=== PATIENT | male | born 1975 | race Caucasian/White ===

== ENCOUNTER 2016-06-15 05:43 | Day surgery (SDC) | payer OTHER ==
--- NOTE | 2016-06-12 11:02 | HP ---
DATE OF CLINIC: 05/20/2016 HAY KWOK : 1975 PLANNED PROCEDURE: Right Knee Arthroscopic Lateral Meniscectomy, Possible Medial Meniscectomy, Possible Chondroplasty Lateral Femoral Condyle DATE OF PROCEDURE: June 15, 2016 SURGEON: Cabrera Serra M.D. PCP: Dr. Deon Dan HISTORY OF PRESENT ILLNESS Hay Kwok is a 41 year old male. * Medication list reviewed with patient allergy list reviewed with patient. Mr. Kwok is in today pre-operatively for his upcoming right knee arthroscopy with Dr. Serra on 06/15/16. Patient presents in good spirits and is eager to proceed. He states he uses his inhaler daily during the Winter months as early am cold air causes chest tightness. Otherwise no recent illness or change in health. No prior surgical complications. His recent consult with Dr. Serra follows: 40-year-old male here for consultation with respect to his right knee. He recently saw Remi on 11/15/15 for evaluation of bilateral knee pain. These have previously been managed by Dr. Gordon in [place]. The right side he had arthroscopy with addressing both the medial and lateral meniscal tears. He did well after that and was able to return to some intermittent running. In 2012 he was moving a piano, injured his left knee, had an arthroscopy of that as well with PMM and PLM and noted to have some lateral compartment osteoarthritis. Again, he had improvement after surgery, but has become more limited with overall activities. 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 He spends quite a bit of time on uneven ground. He has had increasing feelings of a catching sensation with weight-bearing and associated lateral pain. After seeing Remi he had an MRI scan done through [facility] that is available for my review. It is consistent with a tear of the body and anterior horn of the lateral meniscus as well as a possible tear of the posterior horn of the medial meniscus. There is an area of focal chondromalacia in the lateral femoral condyle that appears to be full thickness measured 5x7mm. Patient is interested in discussing definitive treatment options. He does use chewing tobacco. No significant other comorbidities. CURRENT MEDICATION * Advair HFA 45-21 MCG/ACT Aerosol as directed 30 days, 0 refills * Flonase Allergy Relief 50 MCG/ACT Suspension as needed 0 days, 0 refills PAST MEDICAL/SURGICAL HISTORY Reported: Medical: Reported numbness and Reported tingling. Surgical / Procedural: Prior surgery nasal surgery 2003 & 2005 and Arthroscopy Right knee scope 2009?, Left knee scope 2012?. SOCIAL HISTORY Behavioral: Caffeine use, chewing tobacco 1 can every 2 weeks, and non-smoker never smoked. Smoking status: Never smoker. Alcohol: Alcohol on occasion and alcohol use. Drug Use: Not using drugs. Work: Occupation [employer]. ALLERGIES * No Known Allergies REVIEW OF SYSTEMS Systemic: No fever and no recent weight change. Head: No head symptoms. Cardiovascular: No cardiovascular symptoms. Pulmonary: No pulmonary symptoms. Gastrointestinal: No gastrointestinal symptoms. Psychological: No psychological symptoms. Skin: No skin lesions and no rash. PHYSICAL FINDINGS * Vitals taken 05/20/2016 01:33 pm BP-Sitting R 146/74 mmHg 100 - 120/60 - 80 BP Cuff Size Regular Pulse Rate-Sitting 80 bpm 50 - 100 Temp-Oral 97.2 F 96 - 101 Height 70 in 64 - 74 Weight 212 lbs 125 - 225 Body Mass Index 30.4 kg/m2 Body Surface Area 2.14 m2 Pain Level 2 Ears, Nose, Throat: * ENT: normal. Lungs: * Clear to auscultation. Cardiovascular: Heart Rate and Rhythm: * Normal. Abdomen: * Normal. Neurological: Motor: * Dominant Hand = Right Hand. Patient is a well-developed, well-nourished male in no acute distress, normal-appearing mood and affect. He has an antalgic, stiff-legged gait favoring the right. He has overall normal alignment symmetric bilaterally. Exam of the right knee shows skin integrity to be well preserved, no wounds, rashes or lesions. He has trace effusion. No focal swelling. He is tender over the lateral joint-line reproducibly, mildly tender medially. Motion passively is 0-110 degrees, actively 0-125 degrees with significant discomfort on maximum flexion. He has pain with Jacquelyn's localized medially. He has a positive squat and positive Thessaly's for pain. Ligamentous exam is intact for cruciates and collaterals. Patella tracks well. NT over the medial retinaculum. NT over the anteromedial proximal tibia. Calf is soft and NT. Distal light touch sensation and motor function are intact and symmetric. Pulses are palpable. Gentle rotation of the hip is non-irritable, although he does have limited IR without pain. He does have tight hamstrings. Evaluation of the left knee shows neutral alignment. Skin is intact, no wounds, rashes or lesions. No swelling or effusion. He is tender over the lateral joint-line reproducibly, NT medially. Motion 0-130 degrees. Normal ligamentous exam. NT in the proximal tibia. Calf is soft and NT. Distal light touch sensation and motor function are intact and symmetric. Pulses are palpable. Gentle rotation of the hip is non-irritable, although is somewhat limited similar to the contralateral side. TESTS Prior x-rays were reviewed and are negative for acute bony abnormality. He does have what appears to be some slight medial compartment narrowing bilaterally without significant secondary degenerative changes. MRI scan is reviewed with findings as discussed above. ASSESSMENT * Acute complex tear of lateral meniscus Chronic bilateral knee pain. Right knee lateral meniscal tear, rule out medial meniscal tear. THERAPY * Patient not eligible for fall risk assessment. PLAN * Arthroscopy of the knee with lateral meniscectomy -Right, possible medial meniscectomy, possible chondroplasty lateral femoral condyle Discussed with patient in detail the limitations, expectations as well as risks and possible complications of surgery including, but not limited to wound problems or infection, neurovascular injury, continued knee pain or dysfunction including the possibility of failure over time that may require additional operative or non-operative treatment. Patient also realizes the perioperative risks including risks associated with anesthesia and would like to proceed. A full PAR conference was held, questions and concerns addressed and informed consent was obtained. Patient will be sent from my office for completion of the preoperative workup. CARE TEAM Deon Dan MD [facility] CC: Deon Dan MD RS/sg
[2016-06-15] MEDS ORDERED: LACTATED RINGERS 1,000 ML ONE (05:52)
[2016-06-15] MEDS ORDERED: IV START KIT ONE (05:52)
[2016-06-15] MEDS ORDERED: CEFAZOLIN SODIUM 2 GRAM PREMIX 100 ML IV PRN (06:00)
[2016-06-15] MEDS ORDERED: CEFAZOLIN SODIUM 2 GRAM PREMIX 100 ML IV ONE (06:40)
[2016-06-15] MEDS ORDERED: BUPIVACAINE 0.5% (PRES FREE) 30 ML VIAL ONE (06:58)
[2016-06-15] MEDS ORDERED: SPINAL PROCEDURAL TRAY 1 EACH ONE (06:59)
[2016-06-15] MEDS ORDERED: MIDAZOLAM HCL 1 MG/ML 2ML VIAL ONE (07:02)
[2016-06-15] MEDS ORDERED: FENTANYL 100 MCG/2 ML VIAL ONE (07:02)
[2016-06-15] MEDS ORDERED: BUPIVACAINE 0.25% EPI PF 30 ML VIAL ONE ×2 (07:08→07:09)
[2016-06-15] MEDS ORDERED: MORPHINE SULFATE (DURAMORPH) 1 MG/ML 10ML AMP ONE (07:17)
[2016-06-15] MEDS ORDERED: ONDANSETRON 4 MG/2ML 2 ML VIAL ONE (07:46)
--- NOTE | 2016-06-15 08:26 | PCMBPN ---
Brief Post Op Note: Date of Procedure: 06/15/16 Preoperative Diagnosis: right knee LMT, r/o MMT right knee chondromalacia LFC Postoperative Diagnosis: right knee MMT, LMT, chodromalacia MFC/LFC Procedure: scope MM/LM, debridement Surgeon: Cabrera Serra MD Anesthesia: spinal ([place]ano) Condition: stable to PAR Complications: none IV Fluids: 800 mLs of LR Urine Output: no esteban Estimated Blood Loss: 6 mLs Tourniquet Time: none Specimens: [N/A] Implants: none Drains: [N/A]
[2016-06-15] MEDS ORDERED: KETOROLAC TROMETHAMINE 30 MG/ML 1 ML VIAL IV PRN (08:39)
[2016-06-15] MEDS ORDERED: HYDROCODONE/ACETAMINOPHEN 5/325MG TABLET PO PRN (08:39)
[2016-06-15] MEDS ORDERED: ACETAMINOPHEN 325 MG TABLET PO PRN (08:39)
[2016-06-15] MEDS ORDERED: SODIUM CHLORIDE 0.9% 1,000 ML IV SCH (08:39)
[2016-06-15] MEDS ORDERED: HYDROMORPHONE HCL 1 MG/ML SYRINGE IV PRN ×2 (08:39→09:01)
[2016-06-15] MEDS ORDERED: ONDANSETRON 4 MG/2ML 2 ML VIAL IV PRN ×2 (08:39→09:01)
[2016-06-15] MEDS ORDERED: HYDROMORPHONE HCL 0.5 MG/0.5 ML SYRINGE IV PRN (08:45)
[2016-06-15] MEDS ORDERED: FENTANYL 100 MCG/2 ML VIAL IV PRN (09:01)
[2016-06-15] MEDS ORDERED: NALOXONE HCL 0.4 MG/ML VIAL IV PRN (09:01)
[2016-06-15] MEDS ORDERED: ATROPINE SULFATE 0.4 MG/1 ML VIAL IV PRN (09:01)
[2016-06-15] MEDS ORDERED: PROMETHAZINE HCL 25 MG/ML VIAL IM PRN (09:01)
[2016-06-15] MEDS ORDERED: LACTATED RINGERS 1,000 ML IV SCH (09:15)
[2016-06-15] MEDS ORDERED: HYDROCODONE/ACETAMINOPHEN 5/325MG TABLET ONE (09:43)
--- NOTE | 2016-06-16 11:20 | OP ---
HAY KWOK [id number] : 1975 DATE OF SURGERY: June 15, 2016 PREOPERATIVE DIAGNOSIS: 1. Right knee lateral meniscal tear, rule out medial meniscal tear. 2. Right knee chondromalacia, lateral femoral condyle. POSTOPERATIVE DIAGNOSIS: 1. Right knee medial meniscal tear. 2. Right knee lateral meniscal tear. 3. 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 PROCEDURE: 1. Right knee arthroscopic partial medial and lateral meniscectomies. 2. Arthroscopic debridement medial femoral condyle and lateral femoral condyle, right knee. SURGEON: Cabrera Serra M.D. ESTIMATED BLOOD LOSS: 6 mL ANESTHESIA: Spinal per [place] FLUIDS: IV replacement per anesthesia, 800 mL crystalloid. TOURNIQUET TIME: Zero DRAINS: None COMPLICATIONS: None INDICATION: Patient is a 41-year-old male with clinical and radiographic history most consistent with right knee lateral meniscal tear, possible medial meniscal tear and chondromalacia of the lateral femoral condyle. They have failed to improve with traditional nonoperative treatments and would like to proceed with elective arthroscopic evaluation and treatment. PAR conference was held, questions and concerns were addressed, and informed consent was obtained. For additional details, please refer to the previously dictated preoperative History and Physical Exam. OPERATIVE FINDINGS: A complete diagnostic knee arthroscopy was performed with the following findings: The suprapatellar pouch was clean. Patellofemoral joint was normal. Medial and lateral gutters were clean. Medial compartment had a tear of the posterior horn of the medial meniscus extending from the 12:00 position to the 2:00 position involving primarily the central 1/3. The femoral articular surface had a focal area of II-B chondromalacia approximately 1cm in diameter weightbearing in near full extension and contained. Notch showed intact ACL. The lateral compartment showed degenerative tearing of anterior 1/3 involving the anterior horn with a radial flap. There was extension into the mid-body. A small radial flap at the posterior horn as well. There was an area of grade II-B chondromalacia of the lateral femoral condyle overlying the mid-body of the lateral meniscus in extension. There was a central area approximately 4mm in diameter of full thickness chondral loss that was evident. Bone integrity was well preserved. PROCEDURAL DESCRIPTION: Patient was taken to the operating room. General anesthesia was induced and a laryngeal masked airway was placed. The lower extremity was prepped and draped out in the usual sterile fashion. Examination under anesthesia was normal. After sterile prep and drape the knee was injected with 45 mL of 0.25% Marcaine with epinephrine. A medial suprapatellar and lateral peripatellar portal were initially established followed by a medial peripatellar portal under direct intraarticular visualization. A standard 4.0 mm 30 degree arthroscope was used. An arthroscopic pump system was utilized. A photographic record was made. A complete diagnostic knee arthroscopy was then performed with findings as discussed above. We turned our attention initially to the medial compartment. A combination of arthroscopic shuts and a 3.5 shaver were used to debride the tear back to a stable base smoothing the transition zone into the body. We then lightly debrided the unstable areas of the femoral condylar lesion and evacuated the medial compartment of debris. The scope was then passed into the lateral compartment. We used a 3.5 shaver and arthroscopic shuts to debride the central 1/3 tearing of the anterior horn and mid-body and then a small shut to remove the radial flap posteriorly. The transition zone was beveled into the posterior horn. I then debrided the unstable areas of the femoral condylar lesion. I felt the small area of full thickness loss did not necessitate consideration of a microfracture chondroplasty. We evacuated the lateral compartment of debris. Satisfied, after copious irrigation we removed the cannulas and closed the portal sites with interrupted 4-0 Nylon. The knee was injected with an additional 15 mL of 0.25% Marcaine with epinephrine plus 5mg of intraarticular Morphine. A sterile compression wrap was applied. The patient was then awakened, extubated, transferred to their hospital bed and sent to post anesthesia recovery in stable condition. The patient tolerated the procedure well. Sponge, instrument and needle count were correct. VELIA/mrw CC: [place] Sonya Dan MD
== END 2016-06-15 10:54 | disposition home or self-care (01) ==
LOC: SDC 05:43
PROVIDERS: ATTEND Orthopaedic Surgery
PROC: 0SBC4ZZ Excision of Right Knee Joint, Percutaneous Endoscopic Approach (ICD-10-PCS; principal; 2016-06-15)
PROC: 0SBC4ZZ Excision of Right Knee Joint, Percutaneous Endoscopic Approach (ICD-10-PCS; 2016-06-15)
PROC: 0SBC4ZZ Excision of Right Knee Joint, Percutaneous Endoscopic Approach (ICD-10-PCS; 2016-06-15)
PROC: 0SBC4ZZ Excision of Right Knee Joint, Percutaneous Endoscopic Approach (ICD-10-PCS; 2016-06-15)
DX: M23.241 Derangement of anterior horn of lateral meniscus due to old tear or injury, right knee (principal); M23.221 Derangement of posterior horn of medial meniscus due to old tear or injury, right knee; M94.261 Chondromalacia, right knee; F17.220 Nicotine dependence, chewing tobacco, uncomplicated